=== PATIENT | female | born 2000 | race Two or more races ===

== ENCOUNTER → 2018-02-14 | Emergency (ER) | payer SELFPAY ==
--- NOTE | 2018-02-15 00:23 | Emergency Room Report ---
History of Present Illness General Chief Complaint: To Be Triaged Source: Patient Present Illness HPI Is a 17-year-old female who presents with chief complaint of head injury. She slipped and fell at work. No loss of consciousness. I did not see this patient because she left because she does not want this to be a Workmen's Comp. issue. Patient History Past Medical History: see triage record, old chart reviewed Past Surgical History: none Pertinent Family History: none Social History: Denies: smoking Now: No Immunizations: other Reviewed Nursing Documentation: PMH: Agreed; PSxH: Agreed Medical Decision Making Diagnostic Impression: Primary Impression: head injury Status: unchanged Disposition: LEFT W/OUT BEING SEEN Condition: Unknown EDITA NICOLE M.D. Feb 15, 2018 00:23
== END | disposition left against medical advice (07) ==
LOC: EMR 23:45
DX: S09.90XA Unspecified injury of head, initial encounter (principal); Z53.21 Procedure and treatment not carried out due to patient leaving prior to being seen by health care provider

== ENCOUNTER 2018-02-15 19:34 | Emergency (ER) | payer OTHER ==
[~2018-02-15] VITALS: Ht 162.6 cm; Wt 77.1 kg
[2018-02-15 19:57] VITALS: BP 107/74
--- NOTE | 2018-02-15 19:57 | Emergency Room Report ---
History of Present Illness General Chief Complaint: Pain Source: Patient Present Illness HPI Patient present with a headache injury that was sustained yesterday Patient had a fall backwards hitting the side of a table This happened approximately 8:00 last night and patient presents for evaluation She had pain to the area of contusion 4 out of 10 Denies any visual changes Denies any lapse of consciousness denies any vomiting Denies any change in vision Allergies: Coded Allergies: No Known Allergies (Unverified , 02/15/18) Patient History Past Medical History: see triage record Pertinent Family History: none Last Menstrual Period: 09/2017 Now: No : 0 Para: 0 Reviewed Nursing Documentation: PMH: Agreed; PSxH: Agreed Nursing Documentation-PMH Past Medical History: No Stated History Review of Systems All Other Systems: negative except mentioned in HPI Physical Exam Vital Signs Date Time Temp Pulse Resp B/P (MAP) Pulse Ox O2 Delivery O2 Flow Rate FiO2 02/15/18 19:38 98.7 87 14 112/77 99 Room Air 98.8 Sp02 EP Interpretation: reviewed, normal General Appearance: well appearing, no apparent distress Head: normocephalic, atraumatic - However there was a small abrasion/ ecchymosis to the mastoid region non-boggy, Eyes: bilateral eye PERRL, bilateral eye EOMI ENT: hearing grossly normal, normal pharynx, TMs + canals normal, uvula midline Neck: full range of motion, supple, no meningismus, no bony tend Respiratory: lungs clear, normal breath sounds, no rhonchi, no respiratory distress, no retraction, no accessory muscle use Cardiovascular #1: normal peripheral pulses, regular rate, rhythm, no edema, no gallop, no JVD, no murmur Gastrointestinal: normal bowel sounds, non tender, soft, no mass, no organomegaly, non-distended, no guarding, no hernia, no pulsatile mass, no rebound Musculoskeletal: normal inspection Neurologic: oriented x3, responsive, 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, motor strength/ tone normal, sensory intact Psychiatric: mood/affect normal Skin: warm/dry, palpation normal Lymphatic: normal inspection, no adenopathy Medical Decision Making Diagnostic Impression: Primary Impression: head injury ER Course Patient appears to have closed head injury There are no neurological deficits there was no swelling or edema there was no lapse of consciousness patient is not on any anticoagulation And does not meet criteria for acute imaging Patient may return to work tomorrow and follow closely with workers comp as needed Last Vital Signs Date Time Temp Pulse Resp B/P (MAP) Pulse Ox O2 Delivery O2 Flow Rate FiO2 02/15/18 19:38 98.7 87 14 112/77 99 Room Air 98.8 Status: improved Disposition: HOME, SELF-CARE Condition: Improved Scripts No Active Prescriptions or Reported Meds Patient Instructions: Head Injury, Adult Additional Instructions: Follow-up with workers comp clinic as needed Martita Diaz DO Feb 15, 2018 19:57
[2018-02-15 20:14] VITALS: BP 107/74
== END 2018-02-15 20:00 | disposition home or self-care (01) ==
LOC: EMR 20:00
DX: S09.90XA Unspecified injury of head, initial encounter (principal); W18.30XA Fall on same level, unspecified, initial encounter; Y93.9 Activity, unspecified; Y92.9 Unspecified place or not applicable
CPT/HCPCS: 99283

== ENCOUNTER 2018-07-14 19:21 | Emergency (ER) | payer BC, OTHER ==
[~2018-07-14] VITALS: Ht 162.6 cm; Wt 83.9 kg
[2018-07-14 19:35] VITALS: BP 118/73
[2018-07-14] MEDS ORDERED: Ketorolac 30mg Inj IM ONE (20:00)
--- NOTE | 2018-07-14 20:05 | Emergency Room Report ---
History of Present Illness General Chief Complaint: Headache Source: Patient Present Illness HPI 17 yo female patient presents the ER complaining of headache intermittently for the past week. Reports headache is on the right side of her head anteriorly. Denies acute injury or trauma. Denies vomiting or vision changes. Reports nasal congestion during this time. Denies fever. Denies neck pain. Denies phonophobia or photophobia. Denies dysuria, hematuria. Denies fever, chest pain, shortness of breath, abdominal pain, vomiting, diarrhea. Denies history of seizure or high blood pressure. Allergies: Coded Allergies: No Known Allergies (Unverified , 02/15/18) Patient History Past Medical History: see triage record Last Menstrual Period: 07/2017 Reviewed Nursing Documentation: PMH: Agreed; PSxH: Agreed Nursing Documentation-PMH Past Medical History: No Stated History Review of Systems All Other Systems: negative except mentioned in HPI Physical Exam Vital Signs Date Time Temp Pulse Resp B/P (MAP) Pulse Ox O2 Delivery O2 Flow Rate FiO2 07/14/18 19:28 98.4 89 17 118/73 99 Room Air Sp02 EP Interpretation: reviewed, normal General Appearance: well appearing, no apparent distress, alert, GCS 15, non- toxic Head: normocephalic, atraumatic, other - No tenderness to palpation over bilateral frontal or maxillary sinuses Eyes: bilateral eye normal inspection, bilateral eye PERRL ENT: hearing grossly normal, normal pharynx, no angioedema, normal voice, TMs + canals normal, uvula midline, moist mucus membranes, nasal congestion Neck: full range of motion, no meningismus, no bony tend Respiratory: lungs clear, normal breath sounds, no rhonchi, no respiratory distress, no accessory muscle use, no wheezing, speaking full sentences Cardiovascular #1: regular rate, rhythm, no edema Gastrointestinal: non tender, soft, no mass, non-distended, no guarding, no rebound Genitourinary: no CVA tenderness Musculoskeletal: back normal, digits/nails normal, gait/station normal, normal range of motion, non-tender Neurologic: alert, oriented x3, responsive, 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 Anders is my supervising Physician whom patient management has been discussed with. Diagnostic Impression: Primary Impression: Headache ER Course Pt presents to ED c/o headache. DDX considered but are not limited to migraine, cluster NESS, tension NESS, meningitis, ICH, meningitis, HTN, influenza, sinusitis, temporal arteritis, SAH. VITAL SIGNS are WNL, patient is afebrile ER COURSE Provide patient with Reglan, Benadryl, Toradol while in the ER. Physical exam benign, cranial nerves intact as tested, no focal neuro deficits, does not require CT head at this time. Denies neck pain, denies fever, patient afebrile, nontoxic-appearing, low suspicion for meningitis. Patient reports pain improved. Patient is AOx3, neurologically intact, nontoxic appearing, and ambulatory. DISCHARGE: -Rx provided Tylenol Rx provided for Claritin At this time pt is stable for d/c to home. Patient is resting comfortably, in no acute distress, nontoxic appearing, talking and smiling. Will provide with patient care instructions and any necessary prescriptions. Patient to take medication as instructed. Care plan and follow-up instructions provided. Patient questions asked and answered. Patient instructed to follow-up with primary care provider in the next 3 days and discuss further referral with PCP to neurologist. ER precautions given. Patient instructed to return to ER immediately for any new or worsening of symptoms including but not limited to fever, neck stiffness , vision changes, and neurological symptoms. - Please note that this Emergency Department Report was dictated using [employer] marketing executive technology software, occasionally this can lead to erroneous entry secondary to interpretation by the dictation equipment. Last Vital Signs Date Time Temp Pulse Resp B/P (MAP) Pulse Ox O2 Delivery O2 Flow Rate FiO2 07/14/18 19:28 98.4 89 17 118/73 99 Room Air Status: improved Disposition: HOME, SELF-CARE Condition: Stable Scripts Loratadine/Pseudoephedrine (CLARITIN-D 12 HOUR TABLET) 1 Each Tab.er.12h 1 TAB ORAL EVERY 12 HOURS, #24 TAB Prov: Attila Kendrick 07/14/18 Acetaminophen* (TYLENOL EXTRA STRENGTH*) 500 Mg Tablet 500 MG ORAL Q8H PRN for Prn Headache/Temp > 101, #30 TAB 0 Refills Prov: Attila Kendrick 07/14/18 Referrals: NON PHYSICIAN (PCP) Patient Instructions: General Headache Without Cause, Migraine Headache, Sinus Headache Additional Instructions: Followup with primary care provider in 3 -5 days. Discuss referral to neurology. Take medications as directed. Patient questions asked and answered. ER precautions given, patient instructed to return to ER immediately for any new or worsening of symptoms intractable vomiting, vision changes, chest pain, SOB, vertigo. Attila Kendrick Jul 14, 2018 20:05
[2018-07-14] MEDS ORDERED: CLARITIN-D 121 EAC1 ORAL (20:11)
[2018-07-14] MEDS ORDERED: TYLENOL EXTRA500 MG ORAL (20:11)
[2018-07-14 20:15] VITALS: BP 115/72
== END 2018-07-14 20:15 | disposition home or self-care (01) ==
LOC: EMR 19:50
DX: R51 Headache (principal)
CPT/HCPCS: 96372; 99283; J1885

== ENCOUNTER 2020-07-08 00:49 | Emergency (ER) | payer SELFPAY ==
[~2020-07-08] VITALS: Ht 160 cm; Wt 74.8 kg
[~2020-07-08 00:49] MED LIST: CLARITIN-D 121 EAC1 ORAL; TYLENOL EXTRA500 MG ORAL
--- NOTE | 2020-07-08 01:02 | NUR ---
ED Nurse Note: Pt walked into the Ed C/O abd pain 10/10 and N/V x 2hrs. pt fabian fever,sob, cough,chills and body aches. pt took pepto bismol and ibuprofen x 1 hr ago but did not help. Vitals are stable.
--- NOTE | 2020-07-08 01:05 | Emergency Room Report ---
History of Present Illness General Chief Complaint: Abdominal Pain Source: Patient Present Illness [facility] This is a 19-year-old female with no past medical history. She presents with chief plaint abdominal pain. Onset for last few hours now. She was working when the pain came on. Pain is diffuse in nature but mostly lower quadrant area. She has nausea and vomiting once. No diarrhea. Pain is sharp, 9 out of 10. Denies any urinary complaint. Denies any vaginal discharge or bleeding. Nothing made it better. Nothing made it worse. No fever chills. No cough or congestion. No sick contact. Allergies: Coded Allergies: No Known Allergies (Unverified , 02/15/18) COVID-19 Screening Contact w/high risk pt: No Experienced COVID-19 symptoms?: No COVID-19 Testing performed SECURITY EXPERT: No Patient History Past Medical History: see triage record, old chart reviewed Past Surgical History: none Pertinent Family History: none Social History: Denies: smoking Last Menstrual Period: 06/26/2020 Now: No : 0 Para: 0 Immunizations: other Reviewed Nursing Documentation: PMH: Agreed; PSxH: Agreed Nursing Documentation-PMH Past Medical History: No Stated History Review of Systems Eye: Denies: eye pain, blurred vision ENT: Denies: ear pain, nose congestion, throat swelling Respiratory: Denies: cough, shortness of breath Cardiovascular: Denies: chest pain, palpitations Gastrointestinal: Reports: abdominal pain, nausea, vomiting; Denies: diarrhea Musculoskeletal: Denies: back pain, joint pain Skin: Denies: rash Neurological: Denies: headache, numbness Endocrine: Denies: increased thirst, increased urine Hematologic/Lymphatic: Denies: easy bruising All Other Systems: negative except mentioned in HPI Physical Exam Vital Signs Date Time Temp Pulse Resp B/P (MAP) Pulse Ox O2 Delivery O2 Flow Rate FiO2 07/08/20 00:54 98.1 93 18 110/73 (85) 96 Room Air Vitals normal Sp02 EP Interpretation: reviewed, normal General Appearance: well appearing, no apparent distress, alert Head: normocephalic, atraumatic Eyes: bilateral eye PERRL, bilateral eye EOMI ENT: hearing grossly normal, normal pharynx Neck: full range of motion, supple, no meningismus Respiratory: chest non-tender, lungs clear, normal breath sounds Cardiovascular #1: regular rate, rhythm, no murmur Gastrointestinal: normal bowel sounds, no mass, no organomegaly, no bruit, non- distended, tenderness - Diffuse. Musculoskeletal: back normal, normal range of motion, gait/station normal Psychiatric: mood/affect normal Medical Decision Making Diagnostic Impression: Primary Impression: Abdominal pain Qualified Codes: R10.84 - Generalized abdominal pain ER Course Patient with abdominal pain. No evidence of acute abdomen. No evidence of obstruction. If symptoms continue, recommend getting outpatient testing for Covid at this may be just one of the symptom. She looks well now. Will discharge home. CT/MRI/US Diagnostic Results CT/MRI/US Diagnostic Results : Imaging Test Ordered: CT abdomen pelvis Impression Negative per radiologist Last Vital Signs Date Time Temp Pulse Resp B/P (MAP) Pulse Ox O2 Delivery O2 Flow Rate FiO2 07/08/20 00:54 98.1 93 18 110/73 (85) 96 Room Air Status: improved Disposition: HOME, SELF-CARE Condition: Stable Scripts Ibuprofen* (MOTRIN*) 600 Mg Tablet 600 MG ORAL Q6H PRN for For Pain, #30 TAB 0 Refills Prov: Jesus Perkins MD 07/08/20 Patient Instructions: Abdominal Pain, Adult Additional Instructions: Follow-up with your doctor in 2 to 3 days if not better. Return if symptoms worsen. Jesus Perkins MD Jul 08, 2020 01:05
[2020-07-08] MEDS ORDERED: Morphine Sulfate 4mg/ml Inj (IV USE ONLY) IVP ONE (01:15)
[2020-07-08 01:25] LABS: HEMATOCRIT 38.3 % (37.0-47.0); HEMOGLOBIN 13.7 G/DL (12.0-16.0); MEAN CORPUSCULAR VOLUME 79 FL (80-99); PLATELET COUNT 317 K/UL (150-450); RED BLOOD COUNT 4.88 M/UL (4.20-5.40); RED CELL DISTRIBUTION WIDTH 13.7 % (11.6-14.8); WHITE BLOOD COUNT 11.2 K/UL (4.8-10.8)
[2020-07-08 01:28] VITALS: BP 116/76
[2020-07-08] MEDS: Ketorolac 30mg Inj IV ONE ×2 (01:32→01:41)
[2020-07-08 01:35] LABS: ANION GAP 7 mmol/L (5-15); BLOOD UREA NITROGEN 15 mg/dL (7-18); CALCIUM 8.9 MG/DL (8.5-10.1); CARBON DIOXIDE 28 MMOL/L (21-32); CHLORIDE 103 MMOL/L (98-107); CREATININE 0.8 MG/DL (0.55-1.30); POTASSIUM 3.6 MMOL/L (3.5-5.1); SODIUM 138 MMOL/L (136-145)
[2020-07-08 01:40] LABS: ALANINE AMINOTRANSFERASE 23 U/L (12-78); ALBUMIN 3.8 G/DL (3.4-5.0); ALKALINE PHOSPHATASE 91 U/L (46-116); ASPARTATE AMINO TRANSFERASE 16 U/L (15-37); BILIRUBIN,TOTAL 0.3 MG/DL (0.2-1.0)
[2020-07-08 02:17] LABS: APPEARANCE,URINE CLEAR; BILIRUBIN, URINE NEGATIVE (NEGATIVE); GLUCOSE, URINE (UA) NEGATIVE (NEGATIVE); KETONES,URINE 1+ (NEGATIVE); LEUKOCYTE ESTERASE ,URINE 1+ (NEGATIVE); NITRITE,URINE NEGATIVE (NEGATIVE); PH,URINE 6 (4.5-8.0); PROTEIN,URINE 1+ (NEGATIVE); UROBILINOGEN,URINE NORMAL MG/DL (0.0-1.0)
[2020-07-08 02:25] LABS: COLOR,URINE YELLOW
--- NOTE | 2020-07-08 03:12 | Diagnostic Imaging Report ---
EXAM: CT Abdomen and Pelvis Without Intravenous Contrast CLINICAL HISTORY: ABD PAIN TECHNIQUE: Axial computed tomography images of the abdomen and pelvis without intravenous contrast. CTDI is 8.40 mGy and DLP is 463.70 mGy-cm. One or more of the following dose reduction techniques were used: automated exposure control, adjustment of the mA and/or kV according to patient size, use of iterative reconstruction technique. COMPARISON: No relevant prior studies available. FINDINGS: Lung bases: Unremarkable. No mass. No consolidation. ABDOMEN: Liver: Unremarkable. Gallbladder and bile ducts: Unremarkable. No calcified stones. No ductal dilation. Pancreas: Unremarkable. No ductal dilation. Spleen: Unremarkable. No splenomegaly. Adrenals: Unremarkable. No mass. Kidneys and ureters: Unremarkable. No obstructing stones. No hydronephrosis. Stomach and bowel: Unremarkable. No obstruction. No mucosal thickening. PELVIS: Appendix: No findings to suggest acute appendicitis. Bladder: Unremarkable. No stones. Reproductive: Unremarkable as visualized. ABDOMEN and PELVIS: Intraperitoneal space: Unremarkable. No free air. No significant fluid collection. Bones/joints: No acute fracture. No dislocation. Soft tissues: Unremarkable. Vasculature: Unremarkable. No abdominal aortic aneurysm. Lymph nodes: Unremarkable. No enlarged lymph nodes. IMPRESSION: No acute abdominal or pelvic pathology.
[2020-07-08] MEDS ORDERED: IBUPROFEN600 M1 ORAL (03:18)
[2020-07-08 03:25] VITALS: BP 118/75
--- NOTE | 2020-07-08 03:25 | NUR ---
ER DISCHARGE NOTE: Patient is cleared to be discharged per ERMD, pt is aox4, on room air, with stable vital signs. pt was given dc and prescription instructions, pt was able to verbalize understanding, pt id band and iv site removed without complications. pt is able to ambulate with steady gait. pt took all belongings.ED Nurse Note:
== END 2020-07-08 03:25 | disposition home or self-care (01) ==
LOC: EMR 01:06
DX: R10.84 Generalized abdominal pain (principal)
CPT/HCPCS: 36415; 74176; 80053; 81003; 81025; 83690; 85025; 96361; 96374; 96375; 99284; J1885; J2270; J2405; J7030

== ENCOUNTER 2020-07-18 07:57 | Inpatient (IN) | payer BC ==
[~2020-07-18] VITALS: Ht 160 cm; Wt 77.1 kg
[~2020-07-18 07:57] MED LIST changes: +IBUPROFEN600 M1 ORAL
--- NOTE | 2020-07-18 08:29 | Emergency Room Report ---
History of Present Illness General Chief Complaint: Abdominal Pain Source: Patient Present Illness HPI Disclaimer: Please note that this report is being documented using [employer] technology. This can lead to erroneous entry secondary to incorrect interpretation by the dictating instrument. HPI: 19-year-old female no reported past medical history presents with epigastric abdominal pain with nausea and vomiting. Symptoms present for the past few days. She also complains of difficulty with bowel movements and constipation. She denies any fevers, no urinary complaints, last menstrual cycle approximately 1 month ago. Patient seen approximately 10 days ago here f or similar reasons. CT scan at that time showed no significant abnormalities. 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 Patient History Last Menstrual Period: last month Now: No Reviewed Nursing Documentation: PMH: Agreed; PSxH: Agreed Nursing Documentation-PMH Past Medical History: No Stated History Review of Systems All Other Systems: negative except mentioned in HPI Physical Exam Vital Signs Date Time Temp Pulse Resp B/P (MAP) Pulse Ox O2 Delivery O2 Flow Rate FiO2 07/18/20 08:06 99.0 109 18 117/82 (94) 97 Room Air Sp02 EP Interpretation: reviewed, normal General Appearance: well appearing, no apparent distress Head: normocephalic, atraumatic Eyes: bilateral eye PERRL, bilateral eye EOMI ENT: hearing grossly normal, moist mucus membranes Neck: full range of motion, supple Respiratory: lungs clear, normal breath sounds, no rhonchi, no respiratory distress, no retraction, no wheezing Cardiovascular #1: normal peripheral pulses, regular rate, rhythm, no murmur Gastrointestinal: non tender, soft, non-distended, no guarding Neurologic: alert, oriented x3, no focal defects Skin: normal color, warm/dry Medical Decision Making Diagnostic Impression: Primary Impression: Abdominal pain Additional Impressions: Biliary colic Elevated LFTs ER Course MDM: Differential diagnosis included but not limited to gastritis, pancreatitis, biliary colic gastroenteritis, constipation, GERD, less likely surgical abdominal disease. Patient's abdomen nontender on exam. CT scan 10 days ago was normal. Laboratory studies were sent on the patient and LFTs were elevated. I then ordered an ultrasound which demonstrated multiple gallstones. No wall thickening or surrounding fluid. Normal CBD. Patient was given additional analgesics. Patient has poor follow-up. I do believe she would benefit from observation to follow patient's LFTs and possibly a HIDA scan to evaluate for any biliary obstruction. I think cholecystitis is less likely at this time. Be admitted to the medical floor. Laboratory Tests Test 07/18/20 08:30 07/18/20 09:28 White Blood Count 10.0 K/UL (4.8-10.8) Red Blood Count 4.58 M/UL (4.20-5.40) Hemoglobin 13.0 G/DL (12.0-16.0) Hematocrit 39.2 % (37.0-47.0) Mean Corpuscular Volume 86 FL (80-99) Mean Corpuscular Hemoglobin 28.4 PG (27.0-31.0) Mean Corpuscular Hemoglobin Concent 33.1 G/DL (32.0-36.0) Red Cell Distribution Width 12.8 % (11.6-14.8) Platelet Count 345 K/UL (150-450) Mean Platelet Volume 6.0 FL (6.5-10.1) L Neutrophils (%) (Auto) % (45.0-75.0) Lymphocytes (%) (Auto) % (20.0-45.0) Monocytes (%) (Auto) % (1.0-10.0) Eosinophils (%) (Auto) % (0.0-3.0) Basophils (%) (Auto) % (0.0-2.0) Differential Total Cells Counted 100 Neutrophils % (Manual) 79 % (45-75) H Lymphocytes % (Manual) 11 % (20-45) L Monocytes % (Manual) 7 % (1-10) Eosinophils % (Manual) 3 % (0-3) Basophils % (Manual) 0 % (0-2) Band Neutrophils 0 % (0-8) Platelet Estimate Adequate Platelet Morphology Normal Red Blood Cell Morphology Normal Sodium Level 139 MMOL/L (136-145) Potassium Level 3.6 MMOL/L (3.5-5.1) Chloride Level 103 MMOL/L (98-107) Carbon Dioxide Level 31 MMOL/L (21-32) Anion Gap 5 mmol/L (5-15) Blood Urea Nitrogen 13 mg/dL (7-18) Creatinine 0.9 MG/DL (0.55-1.30) Estimated Glomerular Filtration Rate > 60 mL/min (>60) Glucose Level 120 MG/DL (74-106) H Calcium Level 8.9 MG/DL (8.5-10.1) Total Bilirubin 1.4 MG/DL (0.2-1.0) H Direct Bilirubin 1.2 MG/DL (0.0-0.3) H Aspartate Amino Transferase (AST) 398 U/L (15-37) H Alanine Aminotransferase (ALT) 573 U/L (12-78) H Alkaline Phosphatase 432 U/L (46-116) H Total Protein 7.7 G/DL (6.4-8.2) Albumin 3.5 G/DL (3.4-5.0) Globulin 4.2 g/dL Albumin/Globulin Ratio 0.8 (1.0-2.7) L Lipase 210 U/L (73-393) Urine Color Yellow Urine Appearance Clear Urine pH 7 (4.5-8.0) Urine Specific [place] 1.005 (1.005-1.035) Urine Protein 1+ (NEGATIVE) H Urine Glucose (UA) Negative (NEGATIVE) Urine Ketones 2+ (NEGATIVE) H Urine Blood Negative (NEGATIVE) Urine Nitrite Negative (NEGATIVE) Urine Bilirubin Negative (NEGATIVE) Urine Urobilinogen 8 MG/DL (0.0-1.0) H Urine Leukocyte Esterase Negative (NEGATIVE) Urine RBC 0-2 /HPF (0 - 2) Urine WBC 0-2 /HPF (0 - 2) Urine Squamous Epithelial Cells Few /LPF (NONE/OCC) Urine Bacteria Few /HPF (NONE) Urine HCG, Qualitative Negative (NEGATIVE) Microbiology Date/Time Source Procedure Growth Status 07/18/20 13:15 Nasopharynx SARS-CoV-2 RdRp Gene Assay - Final Complete CT/MRI/US Diagnostic Results CT/MRI/US Diagnostic Results : Imaging Test Ordered: Ultrasound abdomen Impression Gallstones, no walking thickening or surrounding fluid Last Vital Signs Date Time Temp Pulse Resp B/P (MAP) Pulse Ox O2 Delivery O2 Flow Rate FiO2 07/18/20 08:06 99.0 109 18 117/82 (94) 97 Room Air Status: improved Disposition: ADMITTED INPATIENT Condition: Serious Scripts No Active Prescriptions or Reported Meds Dane Kim M.D. Jul 18, 2020 08:29
[2020-07-18] MEDS ORDERED: Mylanta II UD 30ml ORAL ONE (08:30)
[2020-07-18] MEDS ORDERED: Lidocaine 2% Visc 15ml soln ORAL ONE (08:30)
[2020-07-18 08:42] VITALS: BP 117/82
[2020-07-18 08:57] LABS: ANION GAP 5 mmol/L (5-15); BLOOD UREA NITROGEN 13 mg/dL (7-18); CALCIUM 8.9 MG/DL (8.5-10.1); CARBON DIOXIDE 31 MMOL/L (21-32); CHLORIDE 103 MMOL/L (98-107); CREATININE 0.9 MG/DL (0.55-1.30); POTASSIUM 3.6 MMOL/L (3.5-5.1); SODIUM 139 MMOL/L (136-145)
[2020-07-18] MEDS ORDERED: Ketorolac 30mg Inj IV ONE (09:00)
[2020-07-18 09:07] LABS: ALANINE AMINOTRANSFERASE 573 U/L (12-78); ALBUMIN 3.5 G/DL (3.4-5.0); ALBUMIN/GLOBULIN RATIO 0.8 (1.0-2.7); ALKALINE PHOSPHATASE 432 U/L (46-116); ASPARTATE AMINO TRANSFERASE 398 U/L (15-37); BILIRUBIN,TOTAL 1.4 MG/DL (0.2-1.0)
[2020-07-18 09:19] LABS: HEMATOCRIT 39.2 % (37.0-47.0); MEAN CORPUSCULAR VOLUME 86 FL (80-99); PLATELET COUNT 345 K/UL (150-450); RED BLOOD COUNT 4.58 M/UL (4.20-5.40); RED CELL DISTRIBUTION WIDTH 12.8 % (11.6-14.8)
[2020-07-18 09:58] LABS: BILIRUBIN,DIRECT 1.2 MG/DL (0.0-0.3)
[2020-07-18 10:03] LABS: APPEARANCE,URINE CLEAR; BILIRUBIN, URINE NEGATIVE (NEGATIVE); GLUCOSE, URINE (UA) NEGATIVE (NEGATIVE); KETONES,URINE 2+ (NEGATIVE); LEUKOCYTE ESTERASE ,URINE NEGATIVE (NEGATIVE); NITRITE,URINE NEGATIVE (NEGATIVE); PH,URINE 7 (4.5-8.0); PROTEIN,URINE 1+ (NEGATIVE); UROBILINOGEN,URINE 8 MG/DL (0.0-1.0)
[2020-07-18 10:05] LABS: COLOR,URINE YELLOW
[2020-07-18] MEDS ORDERED: Morphine Sulfate 4mg/ml Inj (IV USE ONLY) IVP ONE (10:15)
[2020-07-18] MEDS ORDERED: Dicyclomine HCl 10mg/5ml oral soln ORAL ONE (10:15)
--- NOTE | 2020-07-18 12:06 | Diagnostic Imaging Report ---
EXAM: US Abdomen Limited, Right Upper Quadrant CLINICAL HISTORY: PAIN TECHNIQUE: Real-time ultrasound of the right upper quadrant with image documentation. COMPARISON: CT abdomen pelvis dated 07/08/20 FINDINGS: Liver: Liver diameter 11.57 cm. No visible parenchymal lesions. No intrahepatic biliary ductal dilatation. Gallbladder: Cholelithiasis. No wall thickening. No pericholecystic fluid. Positive sonographic Lerner's sign. Common bile duct: Common bile duct diameter 4.43 mm, within normal limits. Pancreas: Visualized portions of the pancreatic head appear unremarkable. Pancreatic body and tail are obscured by bowel gas. Kidneys: Right kidney length of 10.74 cm. Left kidney length of 10.91 cm. Normal cortical thickness. No visible stones. No hydronephrosis. Spleen: Spleen length of 8.74 cm, within normal limits. Aorta: Unremarkable. Visualized portions appear unremarkable without evidence of aneurysm. Inferior vena cava: Unremarkable. Free fluid: None. IMPRESSION: Cholelithiasis with positive sonographic Lerner sign, raising possibility of cholecystitis. However, there is no gallbladder wall thickening or pericholecystic fluid. Common bile duct diameter remains within normal limits.
[2020-07-18 12:30] VITALS: BP 115/84
[2020-07-18 14:46] VITALS: BP 121/68
[2020-07-18 16:00] VITALS: BP 104/65
[2020-07-18] MEDS ORDERED: Morphine Sulfate 2mg/ml Inj(IV/IM USE ONLY) IVP PRN (16:00)
[2020-07-18] MEDS ORDERED: Morphine Sulfate 2mg/ml Inj(IV/IM USE ONLY) IVP SCH (17:00)
[2020-07-18 19:45] VITALS: BP 109/73
--- NOTE | 2020-07-18 22:15 | History and Physical Report ---
DATE OF ADMISSION: 07/18/2020 HISTORY OF PRESENT ILLNESS: This is a 19-year-old female who came to the emergency room for having biliary colic, abdominal pain, elevated LFTs, and acute cholecystitis. The patient was found to have acute cholecystitis. PAST MEDICAL HISTORY: None. ALLERGIES: None. MEDICATIONS: None. PHYSICAL EXAMINATION: GENERAL: This is a young female, uncomfortable. VITAL SIGNS: Blood pressure 109/73, pulse 83, no fever. CHEST: Bilaterally clear. CARDIOVASCULAR: Regular rhythm. ABDOMEN: Soft, mild tenderness epigastrically. GENITOURINARY: Examination deferred. LABORATORY DATA: White counts are 10, hemoglobin 13, hematocrit 39. Chemistry, bilirubin is 1.4, AST 398, ALT , alkaline phosphate 432, lipase 250. Urine is negative, 2+ ketones. The patient also has ultrasound of abdomen showing cholelithiasis with positive sonographic Lerner sign raising possibility of cholecystitis. ASSESSMENT: 1. Acute cholecystitis. 2. Dehydration. PLAN: We will admit her on medical tele-bed. Keep her NPO, full code. IV fluid, IV pain medication, antibiotic. Surgery consult and GI consult. Rangel Mckeon M.D. DR: DEONDRE JOB#: [id number] CC:
[2020-07-19 04:00] VITALS: BP 113/74
[2020-07-19 08:00] VITALS: BP 113/70
[2020-07-19] MEDS ORDERED: 1/2 NS 1000ml IV ONE (09:31)
[2020-07-19 12:00] VITALS: BP 122/77
--- NOTE | 2020-07-19 15:48 | General Progress Note ---
Subjective Constitutional: Reports: no symptoms HEENT: Reports: no symptoms Cardiovascular: Reports: no symptoms Respiratory: Reports: no symptoms Gastrointestinal/Abdominal: Reports: abdominal pain, vomiting Genitourinary: Reports: no symptoms Neurologic/Psychiatric: Reports: no symptoms Endocrine: Reports: no symptoms Hematologic/Lymphatic: Reports: no symptoms Allergies: Coded Allergies: No Known Allergies (Unverified , 02/15/18) Subjective doing better n/v subsided tolerating clear liquid diet Objective Last 24 Hour Vital Signs Date Time Temp Pulse Resp B/P (MAP) Pulse Ox O2 Delivery O2 Flow Rate FiO2 07/19/20 12:00 98.0 103 18 122/77 (92) 98 07/19/20 08:00 98.1 94 18 113/70 (84) 98 07/19/20 04:00 97.6 90 18 113/74 (87) 94 07/18/20 21:00 Room Air 07/18/20 19:45 97.9 83 16 109/73 (85) 99 07/18/20 16:00 97.5 75 16 104/65 (78) 99 Intake and Output 07/18/20 07/19/20 19:00 07:00 Intake Total 300 ml 1000 ml Balance 300 ml 1000 ml Intake IV Total 300 ml 1000 ml # Voids 1 2 Height (Feet): 5 Height (Inches): 3.00 Weight (Pounds): 170 General Appearance: alert EENT: PERRL/EOMI Neck: non-tender Cardiovascular: normal rate Respiratory/Chest: normal breath sounds Abdomen: non tender, soft Extremities: non-tender Assessment/Plan Status: doing well Assessment/Plan: abdo pain ac cholecystitis over wt ivf iv abx zofran hida scan surgery on the case Rahul Mckeon MD Jul 19, 2020 15:48
--- NOTE | 2020-07-19 15:59 | Consultation ---
History of Present Illness General Date patient seen: Jul 19, 2020 Reason for Hospitalization: Abdominal Pain Present Illness HPI This is a pleasant 19-year-old female with no past medical history who [place] [facility] [place] with epigastric abdominal pain, and associated nausea and non bloody vomiting. States began a week ago and believed it may be constipation as she had difficulty with bowel movements and constipation. came to ED and labs/imaging okay so d/c home. went home and pain worsened recently and returned for evaluation. now with elevated lft's. admitted for care and management. acute simone. surgery called to evaluate. patient seen, chart reviewed, patient examined. She denies any fevers, no urinary complaints, last menstrual cycle approximately 1 month ago. Patient seen approximately 10 days ago here for similar reasons. CT scan at that time showed no significant abnormalities. Allergies: Coded Allergies: No Known Allergies (Unverified , 02/15/18) COVID-19 Screening Contact w/high risk pt: No Experienced COVID-19 symptoms?: No Coronavirus symptoms experienc: Cough, Nausea/Vomiting, Diarrhea Medication History No Active Prescriptions or Reported Meds Patient History History Provided By: Patient, Medical Record, PMD Healthcare decision maker N Resuscitation status Advanced Directive on File Past Medical/Surgical History Past Medical/Surgical History: (1) Biliary colic (2) Abdominal pain (3) Elevated LFTs (4) Acute cholecystitis Review of Systems Review of Symptoms General ROS: no weight loss or fever Psychological ROS: no depression or mood changes, no memory loss Ophthalmic ROS: no visual changes or eye irritation ENT ROS: no nasal congestion, hearing loss, dizziness Allergy and Immunology ROS: no allergic symptoms or urticaria Hematological and Lymphatic ROS: no swollen glands, unusual bleeding or bruising Endocrine ROS: no polyuria, polydipsia, weight changes, temperature intolerance Respiratory ROS: no cough, shortness of breath, or wheezing Cardiovascular ROS: no chest pain or dyspnea on exertion Gastrointestinal ROS: ++ abdominal pain,- bright red blood in stool. Musculoskeletal ROS: no myalgias or arthralgias Neurological ROS: no TIA or stroke symptoms Dermatological ROS: no new or changing skin lesions, rashes or pruritis Physical Exam Physical Exam General appearance: alert, cooperative, no distress, appears stated age Head: Normocephalic, without obvious abnormality, atraumatic Eyes: conjunctivae/corneas clear. PERRL, EOM's intact. Fundi benign Throat: Lips, mucosa, and tongue normal. Teeth and gums normal Neck: supple, symmetrical, trachea midline, no adenopathy, thyroid: not enlarged, symmetric, no tenderness/mass/nodules, no carotid bruit and no JVD Lungs: clear to auscultation bilaterally Heart: regular rate and rhythm, S1, S2 normal, no murmur, click, rub or gallop Abdomen: soft, RUQ-tender. Bowel sounds normal. No masses, no organomegaly Extremities: extremities normal, atraumatic, no cyanosis or edema Pulses: 2+ and symmetric Skin: Skin color, texture, turgor normal. No rashes or lesions Neurologic: Grossly normal Last 24 Hour Vital Signs Date Time Temp Pulse Resp B/P (MAP) Pulse Ox O2 Delivery O2 Flow Rate FiO2 07/19/20 12:00 98.0 103 18 122/77 (92) 98 07/19/20 08:00 98.1 94 18 113/70 (84) 98 07/19/20 04:00 97.6 90 18 113/74 (87) 94 07/18/20 21:00 Room Air 07/18/20 19:45 97.9 83 16 109/73 (85) 99 07/18/20 16:00 97.5 75 16 104/65 (78) 99 Intake and Output 07/18/20 07/19/20 19:00 07:00 Intake Total 300 ml 1000 ml Balance 300 ml 1000 ml Intake IV Total 300 ml 1000 ml # Voids 1 2 Height (Feet): 5 Height (Inches): 3.00 Weight (Pounds): 170 Medications Current Medications Medications (Trade) Dose Ordered Sig/Sonia Route PRN Reason Start Time Stop Time Status Last Admin Dose Admin Levofloxacin 100 ml @ 100 mls/hr Q24H IVPB 07/18/20 17:00 07/25/20 16:59 07/18/20 16:50 Morphine Sulfate (Morphine Sulfate) 1 mg Q4H PRN IVP For Pain 07/18/20 16:00 07/25/20 15:59 07/18/20 22:04 Ondansetron HCl (Zofran) 4 mg Q6H PRN IVP Nausea & Vomiting 07/18/20 15:30 08/17/20 15:29 07/18/20 22:03 Sodium Chloride 1,000 ml @ 100 mls/hr Q10H IV 07/18/20 20:45 08/17/20 20:44 07/19/20 06:51 Assessment/Plan Problem List: (1) Acute cholecystitis Assessment & Plan: 19F with acute cholecystitis possible choledocholithiasis. afebrile, HD Stable labs noted US noted npo iv fluids iv abx MRCP to r/o choledocholithiasis GI eval plan lap simone once cleared Liver: Liver diameter 11.57 cm. No visible parenchymal lesions. No intrahepatic biliary ductal dilatation. Gallbladder: Cholelithiasis. No wall thickening. No pericholecystic fluid. Positive sonographic Lerner's sign. Common bile duct: Common bile duct diameter 4.43 mm, within normal limits. Pancreas: Visualized portions of the pancreatic head appear unremarkable. Pancreatic body and tail are obscured by bowel gas. Kidneys: Right kidney length of 10.74 cm. Left kidney length of 10.91 cm. Normal cortical thickness. No visible stones. No hydronephrosis. Spleen: Spleen length of 8.74 cm, within normal limits. Aorta: Unremarkable. Visualized portions appear unremarkable without evidence of aneurysm. Inferior vena cava: Unremarkable. Free fluid: None. IMPRESSION: Cholelithiasis with positive sonographic Lerner sign, raising possibility of cholecystitis. However, there is no gallbladder wall thickening or pericholecystic fluid. Common bile duct diameter remains within normal limits. ICD Codes: K81.0 - Acute cholecystitis SNOMED: 35808490 (2) Biliary colic ICD Codes: K80.50 - Calculus of bile duct without cholangitis or cholecystitis without obstruction SNOMED: 78459137 (3) Abdominal pain ICD Codes: R10.9 - Unspecified abdominal pain SNOMED: 73787919 (4) Elevated LFTs ICD Codes: R79.89 - Other specified abnormal findings of blood chemistry SNOMED: 175684428 Stan Gunter Jul 19, 2020 15:59
[2020-07-19 16:00] VITALS: BP 126/78
--- NOTE | 2020-07-19 17:29 | Diagnostic Imaging Report ---
EXAM: MR Abdomen Without Intravenous Contrast CLINICAL HISTORY: ABN LABS TECHNIQUE: Multiplanar magnetic resonance images of the abdomen without intravenous contrast. COMPARISON: Ultrasound of 07/18/[address] of 07/08/20. FINDINGS: Lung bases: Mild subsegmental atelectasis. Liver: Unremarkable. Gallbladder and bile ducts: As noted sonographically, there is cholelithiasis. Suspect trace pericholecystic edema as seen on series 5, images 15 and 16. Ultrasound report indicates a Lerner sign. Consider acute cholecystitis. Pancreas: Unremarkable. No ductal dilation. Spleen: Unremarkable. No splenomegaly. Adrenals: Unremarkable. No mass. Kidneys and ureters: Unremarkable. No hydronephrosis. Stomach and bowel: Unremarkable. No obstruction. Unremarkable appendix Intraperitoneal space: Unremarkable. No significant fluid collection. Soft tissues: Unremarkable. Vasculature: Unremarkable. No abdominal aortic aneurysm. Lymph nodes: Unremarkable. No enlarged lymph nodes. IMPRESSION: As noted sonographically, there is cholelithiasis. Suspect trace pericholecystic edema as seen on series 5, images 15 and 16. Ultrasound report indicates a Lerner sign. Consider acute cholecystitis. No biliary ductal dilation or choledocholithiasis.
[2020-07-19 20:00] VITALS: BP 110/72
[2020-07-20 04:00] VITALS: BP 109/70
[2020-07-20 05:42] LABS: EOSINOPHILS % (AUTO) 2.6 % (0.0-3.0); HEMATOCRIT 41.4 % (37.0-47.0); HEMOGLOBIN 13.3 G/DL (12.0-16.0); LYMPHOCYTES % (AUTO) 30.1 % (20.0-45.0); MEAN CORPUSCULAR VOLUME 88 FL (80-99); MONOCYTES % (AUTO) 7.1 % (1.0-10.0); NEUTROPHILS % (AUTO) 59.2 % (45.0-75.0); PLATELET COUNT 303 K/UL (150-450); RED BLOOD COUNT 4.71 M/UL (4.20-5.40); WHITE BLOOD COUNT 5.3 K/UL (4.8-10.8)
[2020-07-20 06:04] LABS: ALANINE AMINOTRANSFERASE 552 U/L (12-78); ALBUMIN/GLOBULIN RATIO 0.7 (1.0-2.7); ALKALINE PHOSPHATASE 390 U/L (46-116); ANION GAP 8 mmol/L (5-15); ASPARTATE AMINO TRANSFERASE 160 U/L (15-37); BLOOD UREA NITROGEN 10 mg/dL (7-18); CALCIUM 9.2 MG/DL (8.5-10.1); CARBON DIOXIDE 26 MMOL/L (21-32); CHLORIDE 102 MMOL/L (98-107); CREATININE 0.7 MG/DL (0.55-1.30); POTASSIUM 3.9 MMOL/L (3.5-5.1); SODIUM 135 MMOL/L (136-145)
[2020-07-20 06:32] LABS: AMYLASE 40 U/L (25-115)
[2020-07-20 08:00] VITALS: BP 108/67
[2020-07-20 11:48] VITALS: BP 116/70
--- NOTE | 2020-07-20 13:35 | Surgery Progress Note ---
Surgery Progress Note Subjective Symptoms: improved Additional Comments feels better labs improved mrcp noted discussed care plan plan lap simone tomorrow Objective Last 24 Hour Vital Signs Date Time Temp Pulse Resp B/P (MAP) Pulse Ox O2 Delivery O2 Flow Rate FiO2 07/20/20 11:48 98.0 85 16 116/70 (85) 100 07/20/20 09:00 Room Air 07/20/20 08:00 98.0 95 18 108/67 (81) 96 07/20/20 04:00 97.8 88 18 109/70 (83) 97 07/19/20 21:00 Room Air 07/19/20 20:00 98.4 84 17 110/72 (85) 99 07/19/20 16:00 98.9 86 16 126/78 (94) 99 I&O Intake and Output 07/19/20 07/20/20 19:00 07:00 Intake Total 800 ml 580 ml Balance 800 ml 580 ml Intake Oral 480 ml IV Total 800 ml 100 ml # Voids 2 1 Laboratory Tests Test 07/20/20 05:10 White Blood Count 5.3 K/UL (4.8-10.8) Red Blood Count 4.71 M/UL (4.20-5.40) Hemoglobin 13.3 G/DL (12.0-16.0) Hematocrit 41.4 % (37.0-47.0) Mean Corpuscular Volume 88 FL (80-99) Mean Corpuscular Hemoglobin 28.1 PG (27.0-31.0) Mean Corpuscular Hemoglobin Concent 32.0 G/DL (32.0-36.0) Red Cell Distribution Width 13.0 % (11.6-14.8) Platelet Count 303 K/UL (150-450) Mean Platelet Volume 6.4 FL (6.5-10.1) L Neutrophils (%) (Auto) 59.2 % (45.0-75.0) Lymphocytes (%) (Auto) 30.1 % (20.0-45.0) Monocytes (%) (Auto) 7.1 % (1.0-10.0) Eosinophils (%) (Auto) 2.6 % (0.0-3.0) Basophils (%) (Auto) 1.0 % (0.0-2.0) Sodium Level 135 MMOL/L (136-145) L Potassium Level 3.9 MMOL/L (3.5-5.1) Chloride Level 102 MMOL/L (98-107) Carbon Dioxide Level 26 MMOL/L (21-32) Anion Gap 8 mmol/L (5-15) Blood Urea Nitrogen 10 mg/dL (7-18) Creatinine 0.7 MG/DL (0.55-1.30) Estimat Glomerular Filtration Rate > 60 mL/min (>60) Glucose Level 71 MG/DL (74-106) L Calcium Level 9.2 MG/DL (8.5-10.1) Total Bilirubin 1.0 MG/DL (0.2-1.0) Aspartate Amino Transf (AST/SGOT) 160 U/L (15-37) H Alanine Aminotransferase (ALT/SGPT) 552 U/L (12-78) H Alkaline Phosphatase 390 U/L (46-116) H Total Protein 7.1 G/DL (6.4-8.2) Albumin 3.0 G/DL (3.4-5.0) L Globulin 4.1 g/dL Albumin/Globulin Ratio 0.7 (1.0-2.7) L Amylase Level 40 U/L (25-115) Lipase 99 U/L (73-393) Plan Problems: (1) Acute cholecystitis Assessment & Plan: 19F with acute cholecystitis possible choledocholithiasis. afebrile, HD Stable labs noted US noted npo iv fluids iv abx MRCP to r/o choledocholithiasis GI eval plan lap simone once cleared mrcp noted npo p mn iv fluids consent or in AM for lap simone Liver: Liver diameter 11.57 cm. No visible parenchymal lesions. No intrahepatic biliary ductal dilatation. Gallbladder: Cholelithiasis. No wall thickening. No pericholecystic fluid. Positive sonographic Lerner's sign. Common bile duct: Common bile duct diameter 4.43 mm, within normal limits. Pancreas: Visualized portions of the pancreatic head appear unremarkable. Pancreatic body and tail are obscured by bowel gas. Kidneys: Right kidney length of 10.74 cm. Left kidney length of 10.91 cm. Normal cortical thickness. No visible stones. No hydronephrosis. Spleen: Spleen length of 8.74 cm, within normal limits. Aorta: Unremarkable. Visualized portions appear unremarkable without evidence of aneurysm. Inferior vena cava: Unremarkable. Free fluid: None. IMPRESSION: Cholelithiasis with positive sonographic Lerner sign, raising possibility of cholecystitis. However, there is no gallbladder wall thickening or pericholecystic fluid. Common bile duct diameter remains within normal limits. (2) Biliary colic (3) Abdominal pain (4) Elevated LFTs Stan Gunter Jul 20, 2020 13:35
--- NOTE | 2020-07-20 13:36 | Pre-Procedure Note/Attestation ---
Pre-Procedure Note/Attestation Complete Prior to Procedure Procedure Narrative: laparoscopic cholecystectomy possible open Indications for Procedure Pre-Operative Diagnosis: acute cholecystitis Attestation I attest that I discussed the nature of the procedure; its benefits; risks and complications; and alternatives (and the risks and benefits of such alternatives), prior to the procedure, with the patient (or the patient's legal sales and marketing representative). I attest that, if there was a reasonable possibility of needing a blood transfusion, the patient (or the patient's legal sales and marketing representative) was given the [facility] standardized written summary, pursuant to the Luc Gui Blood Safety Act ([place] Health and Safety Code # 1645, as amended). I attest that I re-evaluated the patient just prior to the surgery and that there has been no change in the patient's H&P, except as documented below: Stan Gunter Jul 20, 2020 13:36
--- NOTE | 2020-07-20 14:39 | General Progress Note ---
Subjective Allergies: Coded Allergies: No Known Allergies (Unverified , 02/15/18) Subjective doing better n/v subsided tolerating clear liquid diet Objective Last 24 Hour Vital Signs Date Time Temp Pulse Resp B/P (MAP) Pulse Ox O2 Delivery O2 Flow Rate FiO2 07/20/20 11:48 98.0 85 16 116/70 (85) 100 07/20/20 09:00 Room Air 07/20/20 08:00 98.0 95 18 108/67 (81) 96 07/20/20 04:00 97.8 88 18 109/70 (83) 97 07/19/20 21:00 Room Air 07/19/20 20:00 98.4 84 17 110/72 (85) 99 07/19/20 16:00 98.9 86 16 126/78 (94) 99 Intake and Output 07/19/20 07/20/20 19:00 07:00 Intake Total 800 ml 580 ml Balance 800 ml 580 ml Intake Oral 480 ml IV Total 800 ml 100 ml # Voids 2 1 Laboratory Tests 07/20/20 05:10: White Blood Count 5.3, Red Blood Count 4.71, Hemoglobin 13.3, Hematocrit 41.4, Mean Corpuscular Volume 88, Mean Corpuscular Hemoglobin 28.1, Mean Corpuscular Hemoglobin Concent 32.0, Red Cell Distribution Width 13.0, Platelet Count 303, Mean Platelet Volume 6.4L, Neutrophils (%) (Auto) 59.2, Lymphocytes (%) (Auto) 30.1, Monocytes (%) (Auto) 7.1, Eosinophils (%) (Auto) 2.6, Basophils (%) (Auto) 1.0, Sodium Level 135L, Potassium Level 3.9, Chloride Level 102, Carbon Dioxide Level 26, Anion Gap 8, Blood Urea Nitrogen 10, Creatinine 0.7, Estimat Glomerular Filtration Rate > 60, Glucose Level 71L, Calcium Level 9.2, Total Bilirubin 1.0, Aspartate Amino Transf (AST/SGOT) 160H, Alanine Aminotransferase (ALT/SGPT) 552H, Alkaline Phosphatase 390H, Total Protein 7.1, Albumin 3.0L, Globulin 4.1, Albumin/Globulin Ratio 0.7L, Amylase Level 40, Lipase 99 Height (Feet): 5 Height (Inches): 3.00 Weight (Pounds): 170 General Appearance: alert EENT: PERRL/EOMI Neck: supple Cardiovascular: regular rhythm Respiratory/Chest: lungs clear Abdomen: non tender, soft Assessment/Plan Status: doing well Assessment/Plan: abdo pain ac cholecystitis over wt ivf iv abx zofran hida scan surgery tomorrow Rahul Mckeon MD Jul 20, 2020 14:39
[2020-07-20 15:53] VITALS: BP 115/79
[2020-07-20 20:00] VITALS: BP 112/73
[2020-07-21] VITALS (15 sets, daily range): BP systolic 95–121; BP diastolic 53–73
[2020-07-21 06:39] LABS: BASOPHILS % (AUTO) 0.9 % (0.0-2.0); EOSINOPHILS % (AUTO) 1.8 % (0.0-3.0); HEMOGLOBIN 12.7 G/DL (12.0-16.0); LYMPHOCYTES % (AUTO) 30.4 % (20.0-45.0); MEAN CORPUSCULAR VOLUME 87 FL (80-99); MONOCYTES % (AUTO) 8.5 % (1.0-10.0); NEUTROPHILS % (AUTO) 58.3 % (45.0-75.0); PLATELET COUNT 309 K/UL (150-450); RED BLOOD COUNT 4.48 M/UL (4.20-5.40); RED CELL DISTRIBUTION WIDTH 13.1 % (11.6-14.8); WHITE BLOOD COUNT 5.3 K/UL (4.8-10.8)
[2020-07-21 07:18] LABS: ALANINE AMINOTRANSFERASE 431 U/L (12-78); ALBUMIN 3.1 G/DL (3.4-5.0); ALBUMIN/GLOBULIN RATIO 0.8 (1.0-2.7); ALKALINE PHOSPHATASE 318 U/L (46-116); AMYLASE 37 U/L (25-115); ANION GAP 5 mmol/L (5-15); ASPARTATE AMINO TRANSFERASE 105 U/L (15-37); BILIRUBIN,TOTAL 0.7 MG/DL (0.2-1.0); BLOOD UREA NITROGEN 9 mg/dL (7-18); CALCIUM 9.2 MG/DL (8.5-10.1); CARBON DIOXIDE 28 MMOL/L (21-32); CHLORIDE 104 MMOL/L (98-107); CREATININE 0.8 MG/DL (0.55-1.30); POTASSIUM 3.9 MMOL/L (3.5-5.1); SODIUM 137 MMOL/L (136-145)
[2020-07-21] MEDS ORDERED: Bacitracin 50000 Units Vial ONE (11:31)
[2020-07-21] MEDS ORDERED: Iothalamate Meglumine 60% 50ML INJ ONE (11:31)
[2020-07-21] MEDS ORDERED: Lidocaine 1%/ 10mg/ml/EPI 0.01mg/ml 20ml INJ ONE ×2 (11:31→12:44)
--- NOTE | 2020-07-21 11:34 | General Progress Note ---
Subjective ROS Limited/Unobtainable: Yes Allergies: Coded Allergies: No Known Allergies (Unverified , 02/15/18) Objective Last 24 Hour Vital Signs Date Time Temp Pulse Resp B/P (MAP) Pulse Ox O2 Delivery O2 Flow Rate FiO2 07/21/20 09:00 Room Air 07/21/20 08:00 98.1 80 16 121/67 (85) 98 07/21/20 04:00 97.9 87 17 118/65 (82) 99 07/20/20 21:00 Room Air 07/20/20 20:00 98.5 89 17 112/73 (86) 97 07/20/20 15:53 98.4 82 16 115/79 (91) 99 07/20/20 11:48 98.0 85 16 116/70 (85) 100 Intake and Output 07/20/20 07/21/20 19:00 07:00 Intake Total 1400 ml Balance 1400 ml Intake Oral 500 ml IV Total 900 ml # Voids 3 2 # Bowel Movements 1 Laboratory Tests 07/21/20 04:55: White Blood Count 5.3, Red Blood Count 4.48, Hemoglobin 12.7, Hematocrit 39.0, Mean Corpuscular Volume 87, Mean Corpuscular Hemoglobin 28.3, Mean Corpuscular Hemoglobin Concent 32.5, Red Cell Distribution Width 13.1, Platelet Count 309, Mean Platelet Volume 6.5, Neutrophils (%) (Auto) 58.3, Lymphocytes (%) (Auto) 30.4, Monocytes (%) (Auto) 8.5, Eosinophils (%) (Auto) 1.8, Basophils (%) (Auto) 0.9, Sodium Level 137, Potassium Level 3.9, Chloride Level 104, Carbon Dioxide Level 28, Anion Gap 5, Blood Urea Nitrogen 9, Creatinine 0.8, Estimat Glomerular Filtration Rate > 60, Glucose Level 75, Calcium Level 9.2, Total Bilirubin 0.7, Aspartate Amino Transf (AST/SGOT) 105H, Alanine Aminotransferase (ALT/SGPT) 431H , Alkaline Phosphatase 318H, Total Protein 7.0, Albumin 3.1L, Globulin 3.9, Albumin/Globulin Ratio 0.8L, Amylase Level 37, Lipase 86 Height (Feet): 5 Height (Inches): 3.00 Weight (Pounds): 170 General Appearance: no apparent distress EENT: normal ENT inspection Neck: supple Cardiovascular: normal rate Respiratory/Chest: decreased breath sounds Abdomen: normal bowel sounds, non tender, soft Extremities: non-tender Assessment/Plan Problem List: (1) Acute cholecystitis ICD Codes: K81.0 - Acute cholecystitis SNOMED: 80782617 (2) Abdominal pain ICD Codes: R10.9 - Unspecified abdominal pain SNOMED: 72675050 (3) Elevated LFTs ICD Codes: R79.89 - Other specified abnormal findings of blood chemistry SNOMED: 386034276 Status: doing well Assessment/Plan: going for surgery will fu post op Dallas Neely MD Jul 21, 2020 11:34
[2020-07-21] MEDS ORDERED: Lidocaine 1% MPF 10mg/ml 5ml ONE (11:36)
[2020-07-21] MEDS ORDERED: Sodium Chloride 10ml vial INJ ONE (11:36)
[2020-07-21] MEDS ORDERED: fentaNYL 100 mcg/2 mL IV ONE (11:37)
[2020-07-21] MEDS ORDERED: NS Irrig 1000ml ONE (11:46)
[2020-07-21] MEDS ORDERED: Sterile Water Irrig 1000ml IRRIG ONE (11:46)
[2020-07-21] MEDS ORDERED: LR 1000ml ONE (11:46)
--- NOTE | 2020-07-21 12:13 | Anethesia Preoperative Eval ---
Anesthesia Pre-op PMH/ROS General Date of Evaluation: Jul 21, 2020 Time of Evaluation: 11:15 Anesthesiologist: Veronica ASA Score: ASA 2 Mallampati Score Class I : Soft palate, uvula, fauces, pillars visible Class II: Soft palate, uvula, fauces visible Class III: Soft palate, base of uvula visible Class IV: Only hard plate visible Mallampati Classification: Class II Surgeon: Jani Diagnosis: Abd Pain Surgical Procedure: Laparoscopic Cholecystectomy Anesthesia History: none Family History: no anesthesia problems Allergies: Coded Allergies: No Known Allergies (Unverified , 02/15/18) Medications: see eMAR Patient NPO?: Yes Past Medical History Other: obesity - BMI 30 Anesthesia Pre-op Phys. Exam Physician Exam Last Vital Signs Date Time Temp Pulse Resp B/P (MAP) Pulse Ox O2 Delivery O2 Flow Rate FiO2 07/21/20 09:00 Room Air 07/21/20 08:00 98.1 80 16 121/67 (85) 98 Constitutional: NAD Neurologic: CN 2-12 intact Cardiovascular: RRR Respiratory: CTA Gastrointestinal: S/NT/ND Airway Exam Mallampati Score: Class II MO: full ROM: full Teeth: intact Anesthesia Pre-op A/P Labs Hematology Test 07/21/20 04:55 White Blood Count 5.3 K/UL (4.8-10.8) Red Blood Count 4.48 M/UL (4.20-5.40) Hemoglobin 12.7 G/DL (12.0-16.0) Hematocrit 39.0 % (37.0-47.0) Mean Corpuscular Volume 87 FL (80-99) Mean Corpuscular Hemoglobin 28.3 PG (27.0-31.0) Mean Corpuscular Hemoglobin Concent 32.5 G/DL (32.0-36.0) Red Cell Distribution Width 13.1 % (11.6-14.8) Platelet Count 309 K/UL (150-450) Mean Platelet Volume 6.5 FL (6.5-10.1) Neutrophils (%) (Auto) 58.3 % (45.0-75.0) Lymphocytes (%) (Auto) 30.4 % (20.0-45.0) Monocytes (%) (Auto) 8.5 % (1.0-10.0) Eosinophils (%) (Auto) 1.8 % (0.0-3.0) Basophils (%) (Auto) 0.9 % (0.0-2.0) Chemistry Test 07/21/20 04:55 Sodium Level 137 MMOL/L (136-145) Potassium Level 3.9 MMOL/L (3.5-5.1) Chloride Level 104 MMOL/L (98-107) Carbon Dioxide Level 28 MMOL/L (21-32) Anion Gap 5 mmol/L (5-15) Blood Urea Nitrogen 9 mg/dL (7-18) Creatinine 0.8 MG/DL (0.55-1.30) Estimat Glomerular Filtration Rate > 60 mL/min (>60) Glucose Level 75 MG/DL (74-106) Calcium Level 9.2 MG/DL (8.5-10.1) Total Bilirubin 0.7 MG/DL (0.2-1.0) Aspartate Amino Transf (AST/SGOT) 105 U/L (15-37) H Alanine Aminotransferase (ALT/SGPT) 431 U/L (12-78) H Alkaline Phosphatase 318 U/L (46-116) H Total Protein 7.0 G/DL (6.4-8.2) Albumin 3.1 G/DL (3.4-5.0) L Globulin 3.9 g/dL Albumin/Globulin Ratio 0.8 (1.0-2.7) L Amylase Level 37 U/L (25-115) Lipase 86 U/L (73-393) Risk Assessment & Plan Assessment: ASA 2E Plan: GA, SED, GlideScope Status Change Before Surgery: No Pre-Antibiotics Dru Gram Ancef IV Given Within 1 Hr of Incision: Yes Time Given: 11:56 Alfonso Martin MD Jul 21, 2020 12:13
[2020-07-21] MEDS ORDERED: Hydromorphone 0.5mg/0.5ml inj IVP PRN (12:15)
[2020-07-21] MEDS ORDERED: Midazolam 2mg/2ml Inj IVP PRN (12:15)
[2020-07-21] MEDS ORDERED: Labetalol 5mg/ml 20ml vial IV PRN (12:15)
[2020-07-21] MEDS ORDERED: Ketorolac 30mg Inj IV PRN ×2 (12:15)
[2020-07-21] MEDS ORDERED: oxyCODONE HCL/Acetaminophen 5/325mg ORAL PRN (12:15)
[2020-07-21] MEDS ORDERED: DiphenhydrAMINE 50mg/ml Inj IVP PRN (12:15)
[2020-07-21] MEDS ORDERED: LORazepam Inj 2mg/ml 1ml IV PRN (12:15)
[2020-07-21] MEDS ORDERED: fentaNYL 100 mcg/2 mL IV PRN (12:15)
[2020-07-21] MEDS ORDERED: LR 1000ml 1,000 ML IVLG SCH (12:15)
[2020-07-21] MEDS ORDERED: Atropine Sulfate 0.4mg/ml inj IVP PRN (12:15)
[2020-07-21] MEDS ORDERED: HYDROcodone/Acetamin 7.5/325 tab ORAL PRN (12:15)
[2020-07-21] MEDS ORDERED: Metoclopramide 10mg/2ml Inj IVP PRN (12:15)
[2020-07-21] MEDS ORDERED: Meperidine 25mg/1ml Inj (FOR RIGORS ONLY) IV PRN (12:15)
[2020-07-21] MEDS ORDERED: HYDROcodone/Acetamin 5/325 tab ORAL PRN (12:15)
--- NOTE | 2020-07-21 12:16 | 48 Hour Post Anesthesia Eval ---
Post Anesthesia Evaluation Procedure: Laparoscopic Cholecystectomy Date of Evaluation: Jul 21, 2020 Time of Evaluation: 15:43 Blood Pressure Systolic: 116 0: 63 Pulse Rate: 82 Respiratory Rate: 18 Temperature (Fahrenheit): 98 O2 Sat by Pulse Oximetry: 100 Airway: patent Nausea: No Vomiting: No Pain Intensity: 2 Hydration Status: adequate Cardiopulmonary Status: Stable Mental Status/LOC: patient returned to baseline Follow-up Care/Observations: 0 Post-Anesthesia Complications: 0 Follow-up care needed: ready to discharge Alfonso Martin MD Jul 21, 2020 12:16
--- NOTE | 2020-07-21 12:16 | Immediate Post-Op Evaluation ---
Immediate Post-Op Evalulation Immediate Post-Op Evalulation Procedure: Laparoscopic Cholecystectomy Date of Evaluation: Jul 21, 2020 Time of Evaluation: 13:22 IV Fluids: 700 LR Blood Products: 0 Estimated Blood Loss: 25 Urinary Output: 0 Blood Pressure Systolic: 117 Blood Pressure Diastolic: 69 Pulse Rate: 88 Respiratory Rate: 16 O2 Sat by Pulse Oximetry: 100 Temperature (Fahrenheit): 97.2 Pain Score (1-10): 2 Nausea: No Vomiting: No Complications 0 Patient Status: awake, reacts, patent, extubated, none Hydration Status: adequate Dru Gram Ancef IV Given Within 1 Hr of Incision: Yes Time Given: 11:56 Alfonso Martin MD Jul 21, 2020 12:16
[2020-07-21] MEDS ORDERED: Neostigmine 1mg/ml 10ml Inj ONE (12:20)
[2020-07-21] MEDS ORDERED: Glycopyrrolate 0.2mg/ml 1ml Vial ONE (12:20)
[2020-07-21] MEDS ORDERED: NS Irrig 1000ml IRRIG ONE (12:21)
[2020-07-21] MEDS ORDERED: Surgicel 4in x 8in TOPIC ONE (12:32)
--- NOTE | 2020-07-21 13:19 | Brief Operative Note ---
Immediate Post Operative Note Operative Note Pre-op Diagnosis: acute cholecystitis Procedure: lap simone Post-op Diagnosis: same as pre-op Surgeon: kae gunter Anesthesiologist: soledad Anesthesia: general, local Specimen: yes Complications: none Condition: stable Fluids: see Estimated Blood Loss: minimal Drains: none Implant(s) used?: No Kae Gunter Jul 21, 2020 13:19
[2020-07-21] MEDS ORDERED: Morphine Sulfate 2mg/ml Inj(IV/IM USE ONLY) IVP PRN ×2 (13:30→15:20)
[2020-07-21] MEDS ORDERED: Milk of Magnesia 30ml Ud ORAL PRN (13:30)
--- NOTE | 2020-07-21 14:08 | General Progress Note ---
Subjective Allergies: Coded Allergies: No Known Allergies (Unverified , 02/15/18) Subjective doing better n/v subsided npo for surgery back from surgery Objective Last 24 Hour Vital Signs Date Time Temp Pulse Resp B/P (MAP) Pulse Ox O2 Delivery O2 Flow Rate FiO2 07/21/20 13:50 92 20 116/72 100 Room Air 07/21/20 13:35 88 19 120/73 100 Simple Mask 6 07/21/20 13:25 92 24 120/72 100 Simple Mask 6 07/21/20 13:15 94 24 117/67 100 Simple Mask 6 07/21/20 13:10 92 20 116/70 100 Simple Mask 6 07/21/20 13:10 82 18 100 07/21/20 13:08 88 16 100 07/21/20 13:03 97.2 87 21 117/69 100 Simple Mask 6 07/21/20 09:00 Room Air 07/21/20 08:00 98.1 80 16 121/67 (85) 98 07/21/20 04:00 97.9 87 17 118/65 (82) 99 07/20/20 21:00 Room Air 07/20/20 20:00 98.5 89 17 112/73 (86) 97 07/20/20 15:53 98.4 82 16 115/79 (91) 99 Intake and Output 07/20/20 07/21/20 19:00 07:00 Intake Total 1400 ml Balance 1400 ml Intake Oral 500 ml IV Total 900 ml # Voids 3 2 # Bowel Movements 1 Laboratory Tests 07/21/20 04:55: White Blood Count 5.3, Red Blood Count 4.48, Hemoglobin 12.7, Hematocrit 39.0, Mean Corpuscular Volume 87, Mean Corpuscular Hemoglobin 28.3, Mean Corpuscular Hemoglobin Concent 32.5, Red Cell Distribution Width 13.1, Platelet Count 309, Mean Platelet Volume 6.5, Neutrophils (%) (Auto) 58.3, Lymphocytes (%) (Auto) 30.4, Monocytes (%) (Auto) 8.5, Eosinophils (%) (Auto) 1.8, Basophils (%) (Auto) 0.9, Sodium Level 137, Potassium Level 3.9, Chloride Level 104, Carbon Dioxide Level 28, Anion Gap 5, Blood Urea Nitrogen 9, Creatinine 0.8, Estimat Glomerular Filtration Rate > 60, Glucose Level 75, Calcium Level 9.2, Total Bilirubin 0.7, Aspartate Amino Transf (AST/SGOT) 105H, Alanine Aminotransferase (ALT/SGPT) 431H , Alkaline Phosphatase 318H, Total Protein 7.0, Albumin 3.1L, Globulin 3.9, Albumin/Globulin Ratio 0.8L, Amylase Level 37, Lipase 86 Height (Feet): 5 Height (Inches): 3.00 Weight (Pounds): 170 General Appearance: combative Cardiovascular: normal rate Respiratory/Chest: lungs clear Abdomen: soft Assessment/Plan Status: doing well Assessment/Plan: abdo pain ac cholecystitis s/p cholecystectomy npo over wt ivf iv abx Rahul Tran MD Jul 21, 2020 14:08
--- NOTE | 2020-07-21 14:30 | Operative Note - Dictated ---
DATE OF OPERATION: 07/21/2020 PREOPERATIVE DIAGNOSIS: Acute cholecystitis. POSTOPERATIVE DIAGNOSIS: Acute cholecystitis. OPERATION PERFORMED: Laparoscopic cholecystectomy. ATTENDING SURGEON: Stan Gunter MD. GLUE LINE OPERATOR: None. ANESTHESIOLOGIST: Alfonso Martin MD. ANESTHESIA: General GETA plus local. ESTIMATED BLOOD LOSS: Minimal. IV FLUIDS: Please see anesthesia records. COMPLICATIONS: None. DRAINS: None. COUNTS: Sponge and needle counts correct x2. WOUND CLASSIFICATION: Class III. SPECIMEN: Gallbladder containing stones sent to pathology for review. ANTIBIOTICS: The patient on scheduled IV antibiotics. INDICATIONS FOR PROCEDURE: This is a very pleasant 19-year-old female who initially presented to [facility] emergency department over a week ago complaining of abdominal pain at which time labs were otherwise unremarkable and she was discharged home in stable condition but returned a week later with worsening abdominal pain, right upper quadrant epigastric, radiation to the back. Ultrasound demonstrated cholelithiasis, potential acute cholecystitis, and LFTs were elevated including bilirubin concerning for potential choledocholithiasis. MRCP was ordered and identified and when evaluated consistent with likely acute cholecystitis and she had likely passed the stone at this time as the CBD was clear. Long discussion was had with the patient and she began to improve in regards to care plan. Cholecystectomy was offered in the elective or inpatient setting. The patient spoke with her mother and after long discussion given her condition, recent event and acute recent worsening with potential choledocholithiasis, abnormal LFTs in 19-year-old, she decided to proceed with surgical intervention given she is still having discomfort as well persistent for greater than 48 hours. Risks, benefits, alternatives discussed. Consent obtained. The patient was taken to the operating room, scheduled 07/21/2020. OPERATIVE NOTE: The patient was taken to the operating room and placed on the operating table in the supine position with bilateral arms out. All bony prominences were well padded. SCDs placed. Preoperative time-out taken identifying the patient, procedure, operative staff, and surgical staff. General anesthesia was induced and the patient was intubated. The abdomen was clipped, prepped, and draped in standard surgical fashion. Local anesthetic was infiltrated throughout the procedure for patient's comfort. An infraumbilical incision was made and carried down to subcutaneous tissue to the fascia. Fascia was elevated and incised. Entry into the abdomen obtained using the open Thad technique. A 12 mm Thad trocar was inserted and the abdomen was insufflated to 12 to 15 mmHg. Laparoscope was inserted and the abdomen was inspected. No injury from initial trocar placement noted. Secondary trocars placed under direct visualization beginning with 12 mm subxiphoid followed by two 5 mm right subcostal. The patient placed in reverse Trendelenburg left-side down position. Omental adhesions to the gallbladder in the right upper quadrant were identified and slowly taken down using blunt dissection. There was a liver cyst identified at the liver edge of the right lobe as well as few small cysts identified on the surface around the area of the dome. The cyst was fairly benign otherwise. The gallbladder dome was grasped and retracted over the liver. There was clear evidence of acute cholecystitis with thickening of peritoneal lining. Omentum adhesed to the gallbladder. Once this was dissected out, the infundibulum was grasped and retracted towards right lower quadrant. Gentle dissection identified the cystic duct and cystic artery with inflamed Calot's node. The cystic artery was doubly clipped and divided after critical view was obtained. The only remaining structure entering into gallbladder and infundibulum was cystic duct. Cystic duct was doubly clipped and divided. The gallbladder was removed from the liver bed using electrocautery, placed in endoscopic retrieval bag and removed from the abdomen using the umbilical port site. Right upper quadrant was irrigated and suctioned clean. Hemostasis was identified. No leakage of bile or bleeding was identified. The clips identified in appropriate positioning without complication. Surgicel was placed in the liver bed and gallbladder fossa. At this time secondary trocars removed under direct visualization followed by the umbilical trocar site. The abdomen was desufflated. The umbilical trocar site and subxiphoid port site fascia reapproximated using [id number] #0 Vicryl sutures. Skin incisions were approximated using 4-0 Monocryl subcuticular interrupted sutures. Glue and Steri-Strips applied. Dressings applied. The patient tolerated procedure well, was extubated, and taken to postanesthetic care unit in stable condition. Stan Gunter M.D. DR: Andrew JOB#: [id number] CC:
[2020-07-21] MEDS: Morphine Sulfate 4mg/ml Inj (IV USE ONLY) IVP PRN ×2 (15:25→20:24)
--- NOTE | 2020-07-21 15:50 | Psychiatry Consultation ---
Psychiatry Consultation Psychiatry Consultation Chief Complaint: Abdominal Pain Allergies: Coded Allergies: No Known Allergies (Unverified , 02/15/18) Medication History No Active Prescriptions or Reported Meds Objective Data Height (Feet): 5 Height (Inches): 3.00 Weight (Pounds): 170 Daniel Marcelino MD Jul 21, 2020 15:50
[2020-07-21] MEDS: Docusate 100mg cap ORAL SCH (17:48)
--- NOTE | 2020-07-21 22:14 | History and Physical Report ---
DATE OF ADMISSION: 07/18/2020 This is a 19-year-old female with a history of anxiety, who has been admitted due to biliary colic, abdominal pain, and cholecystitis. The patient has a history of anxiety, has been taking Ativan, has also difficulty sleeping. PAST PSYCHIATRIC HISTORY: Anxiety. PAST MEDICAL HISTORY: None. ALLERGIES: No known drug allergies. SUBSTANCE ABUSE HISTORY: No known history of illicit drug use or alcohol. The patient is taking pain medication. MENTAL STATUS EXAM: Alert, oriented times self, place, situation. Mood is anxious. Affect is blunted. Thought process is concrete. Thought content, no suicidal, homicidal ideation. Cognition is intact. Insight and judgment is fair. ASSESSMENT: Anxiety disorder. PLAN: 1. Recommend SSRI. 2. We will continue to reassess the patient. 3. Provide the patient with reality orientation. Daniel Marcelino M.D. DR: LILIAN JOB#: [id number] CC:
[2020-07-22] VITALS: BP 110/63
[2020-07-22 04:00] VITALS: BP 111/65
[2020-07-22 05:40] LABS: BASOPHILS % (AUTO) 0.6 % (0.0-2.0); EOSINOPHILS % (AUTO) 0.1 % (0.0-3.0); HEMATOCRIT 35.7 % (37.0-47.0); LYMPHOCYTES % (AUTO) 9.8 % (20.0-45.0); MEAN CORPUSCULAR VOLUME 84 FL (80-99); NEUTROPHILS % (AUTO) 83.5 % (45.0-75.0); PLATELET COUNT 319 K/UL (150-450); RED BLOOD COUNT 4.26 M/UL (4.20-5.40); RED CELL DISTRIBUTION WIDTH 14.1 % (11.6-14.8); WHITE BLOOD COUNT 9.5 K/UL (4.8-10.8)
[2020-07-22 08:00] VITALS: BP 112/68
[2020-07-22] MEDS: Docusate 100mg cap ORAL SCH (08:22)
--- NOTE | 2020-07-22 08:26 | General Progress Note ---
Subjective ROS Limited/Unobtainable: Yes Allergies: Coded Allergies: No Known Allergies (Unverified , 02/15/18) Objective Last 24 Hour Vital Signs Date Time Temp Pulse Resp B/P (MAP) Pulse Ox O2 Delivery O2 Flow Rate FiO2 07/22/20 08:00 97.3 95 20 112/68 (83) 96 07/22/20 04:00 98.1 96 16 111/65 (80) 96 07/22/20 00:00 97.8 93 16 110/63 (79) 96 07/21/20 19:51 Room Air 07/21/20 19:48 98.2 115 17 98/65 (76) 98 07/21/20 17:15 97.5 104 18 95/53 (67) 96 07/21/20 16:15 98.1 108 16 104/60 (75) 95 07/21/20 15:15 98.0 114 16 115/67 (83) 95 07/21/20 14:45 98.0 110 16 109/69 (82) 95 07/21/20 14:15 98.0 100 16 114/69 (84) 95 07/21/20 14:05 97.2 89 21 116/72 95 Room Air 07/21/20 13:50 92 20 116/71 100 Room Air 07/21/20 13:35 88 19 120/73 100 Simple Mask 6 07/21/20 13:25 92 24 120/72 100 Simple Mask 6 07/21/20 13:15 94 24 117/67 100 Simple Mask 6 07/21/20 13:10 92 20 116/70 100 Simple Mask 6 07/21/20 13:10 82 18 100 07/21/20 13:08 88 16 100 07/21/20 13:03 97.2 87 21 117/69 100 Simple Mask 6 07/21/20 09:00 Room Air Intake and Output 07/21/20 07/22/20 19:00 07:00 Intake Total 1200 ml 300 ml Output Total 25 ml 400 ml Balance 1175 ml -100 ml Intake Oral 400 ml 300 ml IV Total 800 ml Output Urine Total 400 ml Estimated Blood Loss 25 ml # Voids 2 Laboratory Tests 07/22/20 05:14: White Blood Count 9.5#, Red Blood Count 4.26, Hemoglobin 12.0, Hematocrit 35.7L, Mean Corpuscular Volume 84, Mean Corpuscular Hemoglobin 28.2, Mean Corpuscular Hemoglobin Concent 33.7, Red Cell Distribution Width 14.1, Platelet Count 319, Mean Platelet Volume 6.3L, Neutrophils (%) (Auto) 83.5H, Lymphocytes (%) (Auto) 9.8L, Monocytes (%) (Auto) 6.0, Eosinophils (%) (Auto) 0.1, Basophils (%) (Auto) 0.6 Height (Feet): 5 Height (Inches): 3.00 Weight (Pounds): 170 General Appearance: no apparent distress EENT: normal ENT inspection Neck: normal alignment Cardiovascular: normal rate Respiratory/Chest: decreased breath sounds Abdomen: hypoactive bowel sounds Extremities: non-tender Assessment/Plan Problem List: (1) Acute cholecystitis ICD Codes: K81.0 - Acute cholecystitis SNOMED: 01415686 (2) Abdominal pain ICD Codes: R10.9 - Unspecified abdominal pain SNOMED: 02195098 (3) Elevated LFTs ICD Codes: R79.89 - Other specified abnormal findings of blood chemistry SNOMED: 379288118 Status: doing well Assessment/Plan: cholecystitis POD #1 on reg diet add miralax to colace Dallas Neely MD Jul 22, 2020 08:26
--- NOTE | 2020-07-22 10:30 | General Progress Note ---
Subjective Allergies: Coded Allergies: No Known Allergies (Unverified , 02/15/18) Subjective doing better n/v subsided npo for surgery back from surgery Objective Last 24 Hour Vital Signs Date Time Temp Pulse Resp B/P (MAP) Pulse Ox O2 Delivery O2 Flow Rate FiO2 07/22/20 08:57 Room Air 07/22/20 08:00 97.3 95 20 112/68 (83) 96 07/22/20 04:00 98.1 96 16 111/65 (80) 96 07/22/20 00:00 97.8 93 16 110/63 (79) 96 07/21/20 19:51 Room Air 07/21/20 19:48 98.2 115 17 98/65 (76) 98 07/21/20 17:15 97.5 104 18 95/53 (67) 96 07/21/20 16:15 98.1 108 16 104/60 (75) 95 07/21/20 15:15 98.0 114 16 115/67 (83) 95 07/21/20 14:45 98.0 110 16 109/69 (82) 95 07/21/20 14:15 98.0 100 16 114/69 (84) 95 07/21/20 14:05 97.2 89 21 116/72 95 Room Air 07/21/20 13:50 92 20 116/71 100 Room Air 07/21/20 13:35 88 19 120/73 100 Simple Mask 6 07/21/20 13:25 92 24 120/72 100 Simple Mask 6 07/21/20 13:15 94 24 117/67 100 Simple Mask 6 07/21/20 13:10 92 20 116/70 100 Simple Mask 6 07/21/20 13:10 82 18 100 07/21/20 13:08 88 16 100 07/21/20 13:03 97.2 87 21 117/69 100 Simple Mask 6 Intake and Output 07/21/20 07/22/20 19:00 07:00 Intake Total 1200 ml 300 ml Output Total 25 ml 400 ml Balance 1175 ml -100 ml Intake Oral 400 ml 300 ml IV Total 800 ml Output Urine Total 400 ml Estimated Blood Loss 25 ml # Voids 2 Laboratory Tests 07/22/20 05:14: White Blood Count 9.5#, Red Blood Count 4.26, Hemoglobin 12.0, Hematocrit 35.7L, Mean Corpuscular Volume 84, Mean Corpuscular Hemoglobin 28.2, Mean Corpuscular Hemoglobin Concent 33.7, Red Cell Distribution Width 14.1, Platelet Count 319, Mean Platelet Volume 6.3L, Neutrophils (%) (Auto) 83.5H, Lymphocytes (%) (Auto) 9.8L, Monocytes (%) (Auto) 6.0, Eosinophils (%) (Auto) 0.1, Basophils (%) (Auto) 0.6 Height (Feet): 5 Height (Inches): 3.00 Weight (Pounds): 170 General Appearance: alert EENT: PERRL/EOMI Neck: supple Cardiovascular: regular rhythm Respiratory/Chest: lungs clear Abdomen: non tender, soft Assessment/Plan Status: doing well Assessment/Plan: abdo pain ac cholecystitis s/p cholecystectomy tolerating diet dc home fu in office on tuesday Rahul Mckeon MD Jul 22, 2020 10:30
[2020-07-22 11:54] VITALS: BP 111/74
--- NOTE | 2020-07-22 15:04 | Surgery Progress Note ---
Surgery Progress Note Subjective Procedure Performed lap simone Additional Comments s/p lap simone doing well post op no n/v pain okay tolerating diet+flatus d/c home today rx given instructions given f/u given Objective Last 24 Hour Vital Signs Date Time Temp Pulse Resp B/P (MAP) Pulse Ox O2 Delivery O2 Flow Rate FiO2 07/22/20 11:54 98.4 92 18 111/74 (86) 97 07/22/20 11:13 97.3 07/22/20 08:57 Room Air 07/22/20 08:00 97.3 95 20 112/68 (83) 96 07/22/20 04:00 98.1 96 16 111/65 (80) 96 07/22/20 00:00 97.8 93 16 110/63 (79) 96 07/21/20 19:51 Room Air 07/21/20 19:48 98.2 115 17 98/65 (76) 98 07/21/20 17:15 97.5 104 18 95/53 (67) 96 07/21/20 16:15 98.1 108 16 104/60 (75) 95 07/21/20 15:15 98.0 114 16 115/67 (83) 95 I&O Intake and Output 07/21/20 07/22/20 19:00 07:00 Intake Total 1200 ml 300 ml Output Total 25 ml 400 ml Balance 1175 ml -100 ml Intake Oral 400 ml 300 ml IV Total 800 ml Output Urine Total 400 ml Estimated Blood Loss 25 ml # Voids 2 Dressing: dry Wound: clean Cardiovascular: RSR Respiratory: clear Abdomen: soft, flat, non-tender, present bowel sounds, non-distended Extremities: no edema, no tenderness, no cyanosis Laboratory Tests Test 07/22/20 05:14 White Blood Count 9.5 K/UL (4.8-10.8) # Red Blood Count 4.26 M/UL (4.20-5.40) Hemoglobin 12.0 G/DL (12.0-16.0) Hematocrit 35.7 % (37.0-47.0) L Mean Corpuscular Volume 84 FL (80-99) Mean Corpuscular Hemoglobin 28.2 PG (27.0-31.0) Mean Corpuscular Hemoglobin Concent 33.7 G/DL (32.0-36.0) Red Cell Distribution Width 14.1 % (11.6-14.8) Platelet Count 319 K/UL (150-450) Mean Platelet Volume 6.3 FL (6.5-10.1) L Neutrophils (%) (Auto) 83.5 % (45.0-75.0) H Lymphocytes (%) (Auto) 9.8 % (20.0-45.0) L Monocytes (%) (Auto) 6.0 % (1.0-10.0) Eosinophils (%) (Auto) 0.1 % (0.0-3.0) Basophils (%) (Auto) 0.6 % (0.0-2.0) Plan Problems: (1) Acute cholecystitis Assessment & Plan: 19F with acute cholecystitis possible choledocholithiasis. afebrile, HD Stable labs noted US noted npo iv fluids iv abx MRCP to r/o choledocholithiasis GI eval plan lap simone once cleared mrcp noted npo p mn iv fluids consent or in AM for lap simone Liver: Liver diameter 11.57 cm. No visible parenchymal lesions. No intrahepatic biliary ductal dilatation. Gallbladder: Cholelithiasis. No wall thickening. No pericholecystic fluid. Positive sonographic Lerner's sign. Common bile duct: Common bile duct diameter 4.43 mm, within normal limits. Pancreas: Visualized portions of the pancreatic head appear unremarkable. Pancreatic body and tail are obscured by bowel gas. Kidneys: Right kidney length of 10.74 cm. Left kidney length of 10.91 cm. Normal cortical thickness. No visible stones. No hydronephrosis. Spleen: Spleen length of 8.74 cm, within normal limits. Aorta: Unremarkable. Visualized portions appear unremarkable without evidence of aneurysm. Inferior vena cava: Unremarkable. Free fluid: None. IMPRESSION: Cholelithiasis with positive sonographic Lerner sign, raising possibility of cholecystitis. However, there is no gallbladder wall thickening or pericholecystic fluid. Common bile duct diameter remains within normal limits. (2) Biliary colic (3) Abdominal pain (4) Elevated LFTs [email or web address] Jul 22, 2020 15:04
[2020-07-22] MEDS ORDERED: LEVOFLOXACIN500 MG ORAL (15:21)
[2020-07-22] MEDS ORDERED: ZOFRAN4 M3 ORAL (15:22)
[2020-07-22] MEDS ORDERED: ZOFRAN ODT8 MG ORAL (15:23)
[2020-07-22] MEDS ORDERED: NORCO 5-325 TA1 EAC1 ORAL (15:24)
[2020-07-22] MEDS ORDERED: COLACE100 MG ORAL (15:25)
--- NOTE | 2020-07-22 20:03 | Psychiatric Progress Note ---
Psychiatry Progress Note Psychiatry Progress Note Medications 19-year-old female with a history of anxiety, who has been admitted due to biliary colic, abdominal pain, and cholecystitis. The patient has a history of anxiety, has been taking Ativan, has also difficulty sleeping. PAST PSYCHIATRIC HISTORY: Anxiety. PAST MEDICAL HISTORY: None. ALLERGIES: No known drug allergies. SUBSTANCE ABUSE HISTORY: No known history of illicit drug use or alcohol. The patient is taking pain medication. MENTAL STATUS EXAM: Alert, oriented times self, place, situation. Mood is anxious. Affect is blunted. Thought process is concrete. Thought content, no suicidal, homicidal ideation. Cognition is intact. Insight and judgment is fair. ASSESSMENT: Anxiety disorder. PLAN: 1. Recommend SSRI. 2. We will continue to reassess the patient. 3. Provide the patient with reality orientation. Neurological/Psychiatric: Reports: no symptoms Allergies: Coded Allergies: No Known Allergies (Unverified , 02/15/18) Objective Data Height (Feet): 5 Height (Inches): 3.00 Weight (Pounds): 170 General Appearance: alert Assessment/Plan Status: doing well Daniel Marcelino MD Jul 22, 2020 20:03
--- NOTE | 2020-07-22 20:03 | Psychiatric Progress Note ---
Psychiatry Progress Note Psychiatry Progress Note Neurological/Psychiatric: Reports: anxiety, depressed Allergies: Coded Allergies: No Known Allergies (Unverified , 02/15/18) Objective Data Height (Feet): 5 Height (Inches): 3.00 Weight (Pounds): 170 General Appearance: alert Additional Comments: MENTAL STATUS EXAM: Alert, oriented times self, place, situation. Mood is anxious. Affect is blunted. Thought process is concrete. Thought content, no suicidal, homicidal ideation. Cognition is intact. Insight and judgment is fair. ASSESSMENT: Anxiety disorder. PLAN: 1. Recommend SSRI. 2. We will continue to reassess the patient. 3. Provide the patient with reality orientation. Assessment/Plan Status: doing well Daniel Marcelino MD Jul 22, 2020 20:03
[2020-07-22] MEDS ORDERED: Miralax 17gm pkt ORAL SCH (21:00)
--- NOTE | 2020-07-24 16:12 | Discharge Summary ---
Discharge Summary Discharge Summary _ Date of admission: 07/18/2020 Date of discharge: 07/22/[address] Mckeon History of Present Illness and Brief Hospital Course Ms. Avila is a 19-year-old female with no reported past medical history, who presented to the ER for evaluation of epigastric abdominal pain for a few days. Associated symptoms included nausea, vomiting, and constipation. She reported her last menstrual cycle was approximately 1 month ago. She denied fever, or urinary complaints. Of note, patient was seen 10 days ago for similar reasons. CT scan at that time showed no significant abnormalities. Initial laboratory studies showed elevated LFTs. Ultrasound of the abdomen demonstrated multiple gallstones without wall thickening or surrounding fluid. Sonographic Lerner sign was positive. Patient was given analgesics in the ER. Patient tested negative for COVID-19. Patient reported history of anxiety, and taking Ativan. Due to difficulty sleeping during admission, Ativan was continued. MRCP was performed to rule out choledocholithiasis. Cholelithiasis was ob served, which was consistent with abdominal ultrasound. It was determined that due to recurring nature of abdominal pain and presence of gallstones in the gallbladder, the best course of action would be laparoscopic cholecystectomy. The benefits, risks and complications, and alternatives were discussed with the patient prior to the procedure. Patient tolerated the procedure well. Patient was initially on n.p.o. after cholecystectomy. She tolerated the pain well with pain medication. Soon, she began tolerating regular diet and passed flatus. Colace and MiraLAX were added for constipation. Patient was discharged home and was instructed to follow-up in 1 week to office. Consultants: Surgery Dr. Gunter Psychiatry Dr. Wheatley Discharge Condition Improved and stable Discharge Activity Advance as tolerated Discharge Diet Advance as tolerated Final diagnoses Cholelithiasis Acute cholecystitis s/p laparoscopic cholecystectomy Anxiety I have been assigned to dictate discharge summary for this account. I was not involved in the patient's management Jaden Rojas Jul 24, 2020 16:12
== END 2020-07-22 16:15 | disposition home or self-care (01) | DRG 419 ==
LOC: EMR 08:31 → 3E 13:03 → EDBEDREQ 13:11 → 3E 14:48
PROC: 0FT44ZZ Resection of Gallbladder, Percutaneous Endoscopic Approach (ICD-10-PCS; principal; 2020-07-21 11:30)
DX: K80.00 Calculus of gallbladder with acute cholecystitis without obstruction (principal); E86.0 Dehydration; F41.9 Anxiety disorder, unspecified
CPT/HCPCS: 36415; 74181; 76700; 80053; 81003; 81025; 82150; 82248; 83690; 85007; 85025; 94003; 94150; 96361; 96374; 96375; 99285; J2180; J2405; J2710; J7030; U0002